=== PATIENT | male | born 1965 | race Caucasian/White ===

== ENCOUNTER 2020-09-07 09:02 | Day surgery (SDC) | payer OTHER ==
[2020-09-07] MEDS ORDERED: diphenhydrAMINE 50 MG/ML VIAL ONE (09:08)
== END 2020-09-07 12:20 | disposition home or self-care (01) ==
LOC: CSHSDC/OP 09:02
PROVIDERS: ATTEND Specialist
DX: Z23 Encounter for immunization (principal); U07.1 COVID-19
CPT/HCPCS: J1200; J7050; M0243; Q0243

== ENCOUNTER 2023-11-17 08:38 | Outpatient (CLI) | payer OTHER | END 2023-11-17 08:39 | disposition home or self-care (01) | LOC: CSHRAD 08:38 | PROVIDERS: ATTEND Internal Medicine Hematology & Oncology | DX: C18.7 Malignant neoplasm of sigmoid colon (principal); K76.0 Fatty (change of) liver, not elsewhere classified | CPT/HCPCS: 71260; 74177 ==